=== PATIENT | female | born 1990 | race Caucasian/White ===

== ENCOUNTER 2019-05-30 21:00 | Emergency (ER) | payer OTHER ==
[~2019-05-30] VITALS: Ht 160 cm; Wt 69.9 kg
[2019-05-30 21:33] VITALS: Ht 160 cm; Wt 69.9 kg
[2019-05-31 00:01] VITALS: BP 109/62
== END 2019-05-31 00:01 | disposition home or self-care (01) ==
LOC: ED 21:00
DX: R51 Headache (principal); J30.9 Allergic rhinitis, unspecified